=== PATIENT | female | born 1970 | race Caucasian/White ===

== ENCOUNTER → 2020-09-06 12:28 | Outpatient (CLI) | payer BC, SELFPAY ==
--- NOTE | ~2020-09-06 | MM_ITS ---
EXAMINATION: MM screening jeffery BI w nisa HISTORY: Screening mammogram, family history of breast cancer in her mother. TECHNIQUE: Craniocaudal and mediolateral oblique 3-D tomosynthesis images were obtained and synthetic 2-D images were generated. CAD analysis was submitted and interpreted. COMPARISON: 03/31/2019, 03/05/2018, 02/19/2017 BREAST PARENCHYMAL COMPOSITION: There are scattered areas of fibroglandular density. FINDINGS: There is no evidence of suspicious mass, calcification, or architectural distortion to sugg est malignancy in either breast. There has been no suspicious interval change. IMPRESSION: 1. No mammographic evidence of malignancy. 2. Recommend routine screening mammography in one year. BI-RADS Category 1: Negative Reviewed, dictated and finalized at location A. BOARDER
== END ==
PROVIDERS: PCP Family Medicine; Visit Provider Advanced Practice Midwife
DX: Z12.31 Encounter for screening mammogram for malignant neoplasm of breast (principal)
CPT/HCPCS: 77063; 77067

== ENCOUNTER 2020-09-18 06:55 | Outpatient (NON) | payer BC, SELFPAY ==
[2020-09-18 22:34] LABS: SARS-CoV-2 RNA PCR Positive
== END 2020-09-18 06:56 ==
LOC: ANHCOVIDDT 07:05
PROVIDERS: PCP Family Medicine; Visit Provider Family Medicine
DX: U07.1 COVID-19 (principal)
CPT/HCPCS: C9803; U0003; U0005

== ENCOUNTER → 2021-01-26 09:13 | Outpatient (CLI) | payer BC, SELFPAY ==
--- NOTE | ~2021-01-26 | XR_ITS ---
XR knee RT 3V 01/26/2021 10:37 Indication: Right knee pain Procedure: 3 views right knee Comparison: 02/01/2013 Findings: There is severe osteoarthritis of the right knee, most advanced in the medial compartment. No fracture or traumatic malalignment. Small joint effusion. No foreign bodies. Impression: 1: Severe osteoarthritis of the right knee. Reviewed, dictated and finalized at location A. Impression: 1: Severe osteoarthritis of the right knee.
== END ==
PROVIDERS: PCP Family Medicine; Visit Provider Family Medicine
DX: M17.11 Unilateral primary osteoarthritis, right knee (principal)
CPT/HCPCS: 73562

== ENCOUNTER → 2021-09-24 02:37 | Outpatient (CLI) | payer BC, SELFPAY ==
[2021-09-24 19:08] LABS: SARS-CoV-2 RNA PCR Positive
== END ==
PROVIDERS: PCP Family Medicine; Visit Provider Family Medicine
DX: U07.1 COVID-19 (principal)
CPT/HCPCS: C9803; U0003; U0005

== ENCOUNTER → 2021-09-30 13:30 | Outpatient (CLI) | payer BC, SELFPAY ==
--- NOTE | ~2021-09-30 | MM_ITS ---
EXAMINATION: MM screening jeffery BI w nisa HISTORY: Screening TECHNIQUE: Craniocaudal and mediolateral oblique 3-D tomosynthesis images were obtained and synthetic 2-D images were generated. CAD analysis was submitted and interpreted. COMPARISON: Comparison to multiple prior studies sequentially, with oldest reviewed study dated 01/15. BREAST PARENCHYMAL COMPOSITION: There are scattered areas of fibroglandular density. FINDINGS: There is no evidence of suspicious mass, calcification, or architectural distortion to sugg est malignancy in either breast. There has been no suspicious interval change. IMPRESSION: 1. No mammographic evidence of malignancy. 2. Recommend routine screening mammography in one year. BI-RADS Category 1: Negative Reviewed, dictated and finalized at location A. CUTTER
== END ==
PROVIDERS: PCP Advanced Practice Midwife; Visit Provider Advanced Practice Midwife
DX: Z12.31 Encounter for screening mammogram for malignant neoplasm of breast (principal)
CPT/HCPCS: 77063; 77067

== ENCOUNTER 2022-01-15 01:41 | Day surgery (SDC) | payer BC, SELFPAY ==
[2022-01-02 13:16] VITALS: BMI 45.1
--- NOTE | 2022-01-14 17:36 | WPDGICN ---
Assessment and Plan Assessment and plan (1) Colon cancer screening: Code(s): Z12.11 - Encounter for screening for malignant neoplasm of colon Status: Acute Assessment and Plan: Colonoscopy with possible biopsy or polypectomy or cautery or injection of substances. GI Consult Note Consult date/time: 01/14/22 17:36 HPI: Merary Paul is a 52 year old female Was referred for consideration for colon cancer screening. She has not had a colonoscopy in the past she has not had blood her stools. There is no known family history of colon cancer Review of Systems Review of Systems: All systems reviewed & are unremarkable except as noted in HPI and below PMFSH Past Medical History Medical History Depression with anxiety Environmental allergies Glaucoma History of COVID-19 08/2020 Type 2 diabetes mellitus Vitamin D deficiency Surgical History Surgical History H/O rotator cuff surgery (~2018) Left H/O tubal ligation (~2009) History of hernia surgery (~2015) Hx of cholecystectomy (~2010) Family History Family History Mother Family history of diabetes mellitus in first degree relative Other Acute myocardial infarction Diabetes mellitus Family history of malignant neoplasm Family history of malignant neoplasm of breast Hypertension Social History Social History Smoking packs per day: 1 Smoking cigarettes per day: 20.0 Years smoked: 25 Smoking pack-years: 25.00 Smoking status: Current every day smoker Tobacco type: cigarettes Second hand tobacco smoke exposure: No Smoking end date: 02/28/21 Alcohol intake: current Drinks per week: 2 Substance use: never Substance use type: marijuana Other substance usage details: GUMMY AT Living arrangements: with family Gender identity (if verbalized by the patient): Female Spiritual care concerns: No Meds Home Medications and Allergies Home Medications Medication Instructions Recorded Confirmed Type latanoprost 0.005 % eye drops 1 drop EACH EYE DAILY 12/28/19 01/02/22 History blood sugar diagnostic See Rx Instructions .ROUTE 01/21/21 12/18/21 Rx .COMPLEX #100 strip cholecalciferol (vitamin D3) 1,250 1,250 mcg PO WEEKLY #12 tablet 06/27/21 01/02/22 Rx mcg (50,000 unit) tablet dapagliflozin 10 mg tablet 10 mg PO DAILY #90 tablet 07/01/21 01/02/22 Rx metformin 500 mg tablet,extended 2,000 mg PO QPM #360 tablet 09/23/21 01/02/22 Rx release 24 hr spironolactone 100 mg tablet 100 mg PO DAILY 12/18/21 01/02/22 History glimepiride 4 mg tablet 4 mg PO BID #180 tablet 12/19/21 01/02/22 Rx sertraline 100 mg tablet 150 mg PO DAILY #135 tablet 12/20/21 01/02/22 Rx Allergies Allergy/AdvReac Type Severity Reaction Status Date / Time metronidazole Allergy Unknown Swelling Verified 01/02/22 13:03 Exam Const: General: alert Nutritional Appearance: obese Orientation/consciousness: patient oriented x3 Resp: Auscultation: clear to auscultation bilaterally Cardio: Rhythm: regular rhythm GI: Inspection: obesity GI Palp: Yes Soft to palpation and No Tenderness to palpation present (GI) Neuro: General: patient oriented x3
[2022-01-15 08:37] VITALS: BP 146/87; PULSE 96; RESP 98; TEMP 35.8; O2SAT 98; BMI 43.2
[2022-01-15] MEDS: LACTATED RINGERS 1,000 ML 150 ML IV CONT (08:49)
[2022-01-15 08:58] LABS: Glucose Point of Care 263 mg/dl (65-105)
--- NOTE | 2022-01-15 09:28 | WPDANESEPPF ---
Anes - Initial Pre Proc Eval Procedure: Operation Date: 01/15/22 10:00 Proposed Procedures p Screening Colonoscopy - Pk Murray MD Date/Time: 01/15/22 09:28 Surgeon: Pk Murray MD Pre Op Diagnosis: neoplasm screening Patient Data Age: 52 Gender: F Height: 1.65 m Weight: 117.7 kg Last Vital Signs Temp 96.5 F L 01/15/22 08:37 Pulse 96 01/15/22 08:37 Resp 98 H 01/15/22 08:37 BP 146/87 H 01/15/22 08:37 Pulse Ox 98 01/15/22 08:37 Allergies Allergy/AdvReac Type Severity Reaction Status Date / Time metronidazole Allergy Unknown Swelling Verified 01/02/22 13:03 Home Medications Medication Instructions Recorded Confirmed Type latanoprost 0.005 % eye drops 1 drop EACH EYE DAILY 12/28/19 01/02/22 History blood sugar diagnostic See Rx Instructions .ROUTE 01/21/21 12/18/21 Rx .COMPLEX #100 strip cholecalciferol (vitamin D3) 1,250 1,250 mcg PO WEEKLY #12 tablet 06/27/21 01/02/22 Rx mcg (50,000 unit) tablet dapagliflozin 10 mg tablet 10 mg PO DAILY #90 tablet 07/01/21 01/02/22 Rx metformin 500 mg tablet,extended 2,000 mg PO QPM #360 tablet 09/23/21 01/02/22 Rx release 24 hr spironolactone 100 mg tablet 100 mg PO DAILY 12/18/21 01/02/22 History glimepiride 4 mg tablet 4 mg PO BID #180 tablet 12/19/21 01/02/22 Rx sertraline 100 mg tablet 150 mg PO DAILY #135 tablet 12/20/21 01/02/22 Rx Laboratory Tests 01/15/22 08:56 POC Capillary Glucose 263 mg/dl H mg/dl (65-105) Patient hx anesthesia problems: none Family hx anesthesia problems: none Results Review: All pre-operative results and documents have been reviewed as part of the pre-operative evaluation. [facility] Past Medical History Medical History Depression with anxiety Environmental allergies Glaucoma History of COVID-19 08/2020 Type 2 diabetes mellitus Vitamin D deficiency Surgical History Surgical History H/O rotator cuff surgery (~2018) Left H/O tubal ligation (~2009) History of hernia surgery (~2015) Hx of cholecystectomy (~2010) Family History Family History Mother Family history of diabetes mellitus in first degree relative Other Acute myocardial infarction Diabetes mellitus Family history of malignant neoplasm Family history of malignant neoplasm of breast Hypertension Social History Social History Smoking packs per day: 1 Smoking cigarettes per day: 20.0 Years smoked: 25 Smoking pack-years: 25.00 Smoking status: Current every day smoker Tobacco type: cigarettes Second hand tobacco smoke exposure: No Smoking end date: 02/28/21 Alcohol intake: current Drinks per week: 2 Substance use: never Substance use type: marijuana Other substance usage details: GUMMY AT Living arrangements: with family Gender identity (if verbalized by the patient): Female Spiritual care concerns: No Anes - Eval Final PreProcedure Day of Procedure 01/15/22 09:28 Patient weight: morbidly obese Heart: regular rate and rhythm Lungs: clear to auscultation Airway: Mallampati scale Neurological: alert and oriented Last oral intake: >/= 8 hours ASA classification: III Emergent: no Anesthetic plan: proceed Anesthesia type and monitoring: general GIVS and standard monitoring Results Review: All pre-operative results and documents have been reviewed as part of the pre-operative evaluation. Informed Consent: The patient's anesthetic plan and its attendant risks and benefits were discussed with the patient/family/POA. Questions were solicited and answers provided to the satisfaction of the patient/family/POA.
[2022-01-15] MEDS: SIMETHICONE ORAL SUSPENSION 20 MG/0.3 ML 30 ML BOTTLE 0.6 ML IRRIGATION (10:02)
[2022-01-15 10:17] VITALS: BP 101/54; PULSE 92; RESP 16; O2SAT 99
[2022-01-15 10:27] VITALS: BP 118/57; PULSE 87; RESP 20; O2SAT 98
[2022-01-15 10:37] VITALS: BP 132/70; PULSE 79; RESP 20; O2SAT 98
== END 2022-01-15 10:48 | disposition home or self-care (01) ==
PROVIDERS: PCP Family Medicine; Visit Provider Internal Medicine Gastroenterology
PROC: 0DJD8ZZ Inspection of Lower Intestinal Tract, Via Natural or Artificial Opening Endoscopic (ICD-10-PCS; CPT 45378; principal; 2022-01-15 10:00)
DX: Z12.11 Encounter for screening for malignant neoplasm of colon (principal); K63.5 Polyp of colon; K57.30 Diverticulosis of large intestine without perforation or abscess without bleeding; E11.9 Type 2 diabetes mellitus without complications; E55.9 Vitamin D deficiency, unspecified; H40.9 Unspecified glaucoma; F41.8 Other specified anxiety disorders; F17.210 Nicotine dependence, cigarettes, uncomplicated; F12.90 Cannabis use, unspecified, uncomplicated; Z79.84 Long term (current) use of oral hypoglycemic drugs; E66.01 Morbid (severe) obesity due to excess calories; Z68.41 Body mass index [BMI] 40.0-44.9, adult
CPT/HCPCS: 45380; 82948; 88305; J2704; J7120

== ENCOUNTER 2022-09-19 09:00 | Outpatient (CLI) | payer BC, SELFPAY ==
--- NOTE | 2022-09-19 11:00 | NEURO_ITS ---
Impression: Patient reports a history of bilateral upper extremity paresthesia and pain in both elbows. # Evidence of mild right Carpal Tunnel Syndrome. # Normal needle/EMG exam. # Clinical correlation recommended. Motor Nerve Conduction Upper Extremities Median Nerve Conduction Velocity (m/sec) Terminal Latency (msec) Response Voltage(mV) Elbow-Wrist Wrist Elbow Wrist Right 56 3.4 4 7 Left 55 3.4 4 5 Ulnar Nerve Conduction Velocity (m/sec) Terminal Latency (msec) Response Voltage(mV) Above Elbow Below Elbow Wrist Above Elbow Below Elbow Wrist Right 53 55 2.1 5 4 7 Left 56 54 2.5 2 3 6 F-Wave Latency Median (ms) Ulnar (ms) Right 27.1 27.4 Left 27.0 26.7 Sensory Nerve Conduction Upper Extremities Median Nerve Stimulation Terminal Latency (msec) Wrist/Digit Response Voltage (uV) Wrist Right 4.8/4.8 19/25 Left 3.4/3.6 46/43 Ulnar Nerve Stimulation Terminal Latency (msec) Wrist/Digit Response Voltage (uV) Wrist Right 2.6 27 Left 2.3 10 Radial Nerve Terminal Latency (msec) Response Voltage(mV) Right 1.6 49 Left 1.7 38 Left Right Muscles Examined Fibrillation Fasciculation Scarcity Voltage Duration Left Right Left Right Left Right Left Right Left Right Deltoid Biceps X X Brachioradialis Triceps X X Pronator Teres X X Ext Indicis X X Ext Digitorum X X Abd Poll Brev X X 1st Dorsal Interosseus Paraspinals MTDD
== END 2022-09-19 09:01 | disposition home or self-care (01) ==
PROVIDERS: PCP Family Medicine; Visit Provider Family Medicine
DX: R20.0 Anesthesia of skin (principal)
CPT/HCPCS: 95886; 95911

== ENCOUNTER 2022-12-08 10:30 | Outpatient (CLI) | payer BC, SELFPAY ==
[2022-12-08 20:42] LABS: Alanine Aminotransferase 29 U/L (6-35); Albumin Level 4.5 g/dL (3.5-5.1); Alkaline Phosphatase 91 U/L (38-126); Anion Gap 7 mmol/L (8-16); Aspartate Amino Transferase 25 U/L (14-36); Bilirubin,Total 0.6 mg/dL (0.2-1.3); Blood Urea Nitrogen 16 mg/dL (7-17); Calcium 9.4 mg/dL (8.4-10.2); Carbon Dioxide 28 mmol/L (22-30); Chloride 106 mmol/L (98-107); Estimated Glomerular Filt Rate > 60; Glucose 169 mg/dL (65-110); Potassium 4.2 mmol/L (3.4-5.0); Sodium 141 mmol/L (137-145)
[2022-12-08 21:03] LABS: Hemoglobin A1C 7.4 % (<5.7)
== END 2022-12-08 10:31 | disposition home or self-care (01) ==
LOC: ANHGOSHLAB 10:31
PROVIDERS: PCP Family Medicine; Visit Provider Family Medicine
DX: E11.9 Type 2 diabetes mellitus without complications (principal); F41.8 Other specified anxiety disorders; Z79.899 Other long term (current) drug therapy
CPT/HCPCS: 36415; 80053; 83036

== ENCOUNTER → 2023-04-15 15:00 | Outpatient (CLI) | payer BC, SELFPAY ==
--- NOTE | ~2023-04-15 | MM_ITS ---
EXAMINATION: MM screening jeffery BI w nisa HISTORY: Screening TECHNIQUE: Craniocaudal and mediolateral oblique 3-D tomosynthesis images were obtained and synthetic 2-D images were generated. CAD analysis was submitted and interpreted. COMPARISON: Comparison to multiple prior studies sequentially, with oldest reviewed study dated 02/11. BREAST PARENCHYMAL COMPOSITION: There are scattered areas of fibroglandular density. FINDINGS: There is a developing cluster of calcifications in the lower outer quadrant of the left lorie ast. There are developing asymmetries centered in the upper outer quadrant of the left breast. The ri ght breast is stable without evidence for malignancy. IMPRESSION: 1. Developing left breast asymmetries and clustered calcifications. 2. Additional mammographic views and possible breast ultrasound are recommended. BI-RADS Category 0: Incomplete: Needs additional imaging evaluation. Reviewed, dictated and finalized at location A. IMPRESSION: 1. Developing left breast asymmetries and clustered calcifications. 2. Additional mammographic views and possible breast ultrasound are recommended . BI-RADS Category 0: Incomplete: Needs additional imaging evaluation.
== END ==
PROVIDERS: PCP Advanced Practice Midwife; Visit Provider Advanced Practice Midwife
DX: Z12.31 Encounter for screening mammogram for malignant neoplasm of breast (principal); R92.1 Mammographic calcification found on diagnostic imaging of breast
CPT/HCPCS: 77063; 77067

== ENCOUNTER → 2023-05-20 08:46 | Outpatient (CLI) | payer BC, SELFPAY ==
--- NOTE | ~2023-05-20 | MMUS_ITS ---
EXAMINATION: MM diagnostic jeffery LT w nisa, US breast LT limited HISTORY: Follow-up left breast asymmetries and calcifications TECHNIQUE: Additional 3-D tomosynthesis images of the left breast were performed and synthetic 2-D im ages were generated. CAD analysis was submitted and interpreted. High resolution Limited left breast ultrasound was performed. COMPARISON: 04/15/2023 BREAST PARENCHYMAL COMPOSITION: Breast composed of scattered areas of fibroglandular density FINDINGS: MAMMOGRAPHIC FINDINGS: There are clustered indeterminate calcifications in the lower outer quadrant of the left breast, midd le depth. Focal asymmetries in the upper outer quadrant of the left breast are less apparent with spo t compression and mediolateral views. ULTRASOUND: Limited left breast ultrasound: Normal heterogeneous echotexture without focal solid or cystic mass. IMPRESSION: 1. Clustered indeterminate calcifications in the lower outer quadrant of the left breast, middle dept h. 2. Stereotactic left breast biopsy recommended. BI-RADS category 4, suspicious findings. Reviewed, dictated and finalized at location A. IMPRESSION: 1. Clustered indeterminate calcifications in the lower outer quadrant of the le ft breast, middle depth. 2. Stereotactic left breast biopsy recommended. BI-RADS category 4, suspicious findings.
== END ==
PROVIDERS: PCP Family Medicine; Visit Provider Advanced Practice Midwife
DX: R92.8 Other abnormal and inconclusive findings on diagnostic imaging of breast (principal); R92.1 Mammographic calcification found on diagnostic imaging of breast
CPT/HCPCS: 76642; 77061; 77065; G0279

== ENCOUNTER 2023-08-11 06:20 | Outpatient (CLI) | payer BC, SELFPAY ==
--- NOTE | 2023-09-07 14:44 | WPDHOMESLEEP ---
Sleep Study - Home Unattended Date of Study: 08/11/23 Ordering Provider: Michelle Pike MD Interpreting Provider: Tuyet Vilchis, DO Home Sleep Study Type: Watch PAT Height: 1.65 m Weight: 109.769 kg Body Mass Index: 40.2 Neck Circumference (inches): 17 [place]: 12 Reason for Sleep Study Difficulty staying asleep Sleep History The patient is a 53-year-old female with hypertension, diabetes, anxiety, acne, glaucoma, depression, seasonal allergies, osteoporosis, morbid obesity and current tobacco use that had a sleep study ordered by her primary care physician for evaluation of sleep apnea. The patient denies awakening from sleep short of breath. She frequently awakens at night with heartburn, belching or cough. She constantly snores loudly enough that others complain. She constantly has trouble sleeping when she has a cold. She denies waking up gasping for air throughout the night. She denies having breathing problems at night observed by herself or others. She occasionally sweats excessively at night. She denies having heart palpitations or irregular heartbeats during the night. She occasionally falls asleep during the day and occasionally falls asleep while driving. She denies sleep paralysis, cataplexy and hypnagogic/hypnopompic hallucinations. She rarely has trouble at school or work due to sleepiness. She denies feeling afraid of going to sleep. She denies having nightmares. She rarely remembers her dreams. She frequently has thoughts racing through her mind. She frequently feels sad, depressed and anxious. She constantly has muscular tension. She occasionally notices parts of her body jerk. She occasionally kicks during the night. She denies having crawling and aching feelings in her legs. She rarely has leg pain during the night. She rarely grinds her teeth during sleep but constantly awakens with morning jaw pain. She is frequently bothered by pain during the day but rarely awakened by pain during the night. She constantly wakes up feeling stiff in the morning. She constantly wakes up with sore or achy muscles. She constantly wakes up with pain in the neck, spine and other joints. She goes to bed at 7:00 p.m. on weekdays and between 7-9 p.m. on the weekends. It takes her 20 minutes to fall asleep. She wakes up twice throughout the night for unknown reasons and it can take 30 minutes for her to fall back asleep. She wakes up between 4-4:30 a.m. on weekdays and at 6:00 a.m. on the weekends. She will stay in bed for 20 minutes after waking up in the morning. She currently lives with her adult son. She denies consuming any caffeinated beverages within 2 hours of bedtime. She denies engaging in physical exercise before bedtime. She will watch television before falling asleep. She denies taking naps in the afternoon or the evening. She consumes 12 oz of caffeinated coffee per day. She currently smokes 0.5 packs of cigarettes per day. She denies alcohol and recreational drug use. [facility] Past Medical History Medical History Depression with anxiety Environmental allergies Essential (primary) hypertension Glaucoma History of COVID-19 08/2020 Type 2 diabetes mellitus Vitamin D deficiency Surgical History Surgical History H/O rotator cuff surgery (~2018) Left H/O tubal ligation (~2009) History of hernia surgery (~2015) Hx of cholecystectomy (~2010) Family History Family History Mother Family history of diabetes mellitus in first degree relative Other Acute myocardial infarction Diabetes mellitus Family history of malignant neoplasm Family history of malignant neoplasm of breast Hypertension Social History Social History Smoking packs per day: 1 Smoking c
[2023-09-07 14:57] VITALS: BMI 40.2
== END 2023-08-13 08:00 | disposition home or self-care (01) ==
LOC: ANHCSM 06:20
PROVIDERS: PCP Family Medicine; Visit Provider Family Medicine
DX: R29.818 Other symptoms and signs involving the nervous system (principal); G47.9 Sleep disorder, unspecified; R40.0 Somnolence; G47.10 Hypersomnia, unspecified
CPT/HCPCS: 95800

== ENCOUNTER 2024-01-15 08:49 | Outpatient (CLI) | payer BC, SELFPAY ==
--- NOTE | ~2024-01-15 | CT_ITS ---
CT Scan of the Chest without Contrast: Clinical Indication: Lung cancer screening, nicotine dependence Technique: Contiguous sections were acquired throughout the chest without intravenous contrast. Dose reduction technique was used on this scan by utilizing automated exposure control and iterative recon struction technique. The dose-length product (DLP) was 182.74 mGy-cm. Findings: There is no evidence of any significant mediastinal, hilar or axillary lymphadenopathy. The mediastin al soft tissues appear normal. There is no evidence of pleural or pericardial effusion. The lungs are clear. No pulmonary nodules or infiltrates are noted. Images through the upper abdomen reveal no abnormalities. Impression: Lung RADS 1: Negative. 12 month follow-up screening CT advised. Reviewed, dictated and finalized at location . Impression: Lung RADS 1: Negative. 12 month follow-up screening CT advised.
== END 2024-01-15 08:50 | disposition home or self-care (01) ==
LOC: ANHIMG 08:50
PROVIDERS: PCP Family Medicine; Visit Provider Nurse Practitioner Family
DX: Z12.2 Encounter for screening for malignant neoplasm of respiratory organs (principal); Z87.891 Personal history of nicotine dependence
CPT/HCPCS: 71271

== ENCOUNTER 2024-01-28 09:26 | Outpatient (CLI) | payer BC, SELFPAY ==
[2024-02-09 16:58] VITALS: BMI 35.1
--- NOTE | 2024-02-09 16:58 | WPDSLEEPSTUD ---
Sleep Study Date of Study: 01/28/24 Ordering Provider: DINESH Donald Interpreting Physician: Tuyet Vilchis DO Sleep Study Type: Split Polysomnogram Height: 1.65 m Weight: 95.708 kg Body Mass Index: 35.1 Neck Circumference (inches): 16 [place]: 12 Reason for Sleep Study Difficulty staying asleep Sleep History The patient is a 54-year-old female with hypertension, diabetes, anxiety, acne, glaucoma, depression, seasonal allergies, osteoporosis, obesity and current tobacco use that had a sleep study ordered by her primary care physician for evaluation of sleep apnea. The patient denies awakening from sleep short of breath. She frequently awakens at night with heartburn, belching or cough. She constantly snores loudly enough that others complain. She constantly has trouble sleeping when she has a cold. She denies waking up gasping for air throughout the night. She denies having breathing problems at night observed by herself or others. She occasionally sweats excessively at night. She denies having heart palpitations or irregular heartbeats during the night. She occasionally falls asleep during the day and occasionally falls asleep while driving. She denies sleep paralysis, cataplexy and hypnagogic/hypnopompic hallucinations. She rarely has trouble at school or work due to sleepiness. She denies feeling afraid of going to sleep. She denies having nightmares. She rarely remembers her dreams. She frequently has thoughts racing through her mind. She frequently feels sad, depressed and anxious. She constantly has muscular tension. She occasionally notices parts of her body jerk. She occasionally kicks during the night. She denies having crawling and aching feelings in her legs. She rarely has leg pain during the night. She rarely grinds her teeth during sleep but constantly awakens with morning jaw pain. She is frequently bothered by pain during the day but rarely awakened by pain during the night. She constantly wakes up feeling stiff in the morning. She constantly wakes up with sore or achy muscles. She constantly wakes up with pain in the neck, spine and other joints. She goes to bed at 7:00 p.m. on weekdays and between 7-9 p.m. on the weekends. It takes her 20 minutes to fall asleep. She wakes up twice throughout the night for unknown reasons and it can take 30 minutes for her to fall back asleep. She wakes up between 4-4:30 a.m. on weekdays and at 6:00 a.m. on the weekends. She will stay in bed for 20 minutes after waking up in the morning. She currently lives with her adult son. She denies consuming any caffeinated beverages within 2 hours of bedtime. She denies engaging in physical exercise before bedtime. She will watch television before falling asleep. She denies taking naps in the afternoon or the evening. She consumes 12 oz of caffeinated coffee per day. She currently smokes 0.5 packs of cigarettes per day. She denies alcohol and recreational drug use. [facility] Past Medical History Medical History Breast wound Depression with anxiety Environmental allergies Essential (primary) hypertension Glaucoma Great toe pain History of COVID-19 08/2020 Type 2 diabetes mellitus Vitamin D deficiency Surgical History Surgical History H/O rotator cuff surgery (~2018) Left H/O tubal ligation (~2009) History of hernia surgery (~2015) Hx of cholecystectomy (~2010) Family History Family History Mother Family history of diabetes mellitus in first degree relative Other Acute myocardial infarction Diabetes mellitus Family history of malignant neoplasm Family history of malignant neoplasm of breast Hypertension Social History Social History Smoking packs per day: 1 Sm
== END 2024-01-29 07:19 | disposition home or self-care (01) ==
PROVIDERS: PCP Family Medicine; Visit Provider Physician Assistant
DX: G47.33 Obstructive sleep apnea (adult) (pediatric) (principal); I10 Essential (primary) hypertension; F39 Unspecified mood [affective] disorder; R40.0 Somnolence; R29.818 Other symptoms and signs involving the nervous system; G47.61 Periodic limb movement disorder; G47.00 Insomnia, unspecified
CPT/HCPCS: 95811

== ENCOUNTER 2025-01-16 10:01 | Outpatient (CLI) | payer BC, SELFPAY ==
--- NOTE | ~2025-01-16 | CT_ITS ---
EXAMINATION: CT lung screening DATE: 01/16/2025 10:17 INDICATION: Z87.891 - Personal history of nicotine dependence TECHNIQUE: Computed tomography (CT) of the chest was performed without intravenous contrast. Addition al 3D reconstructions utilizing coronal maximum intensity projection (MIP) were performed. Automated exposure control and iterative reconstruction technique were employed. The dose-length product was 14 5.50 mGy-cm. COMPARISON: 01/15/2024 FINDINGS: 3 4 mm left lower lobe nodule near the apex of the left hemidiaphragm. No other pulmonary nodules, pn eumonia, pulmonary edema or pleural effusion. Heart size is normal. No pericardial effusion. Thoracic aorta is normal in caliber. No pathologically enlarged thoracic lymphadenopathy. Cholecystectomy cli ps the gallbladder fossa. There are few diverticula along the splenic flexure the colon without adjac ent comparison to suggest diverticulitis. Mild thoracic spondylosis. IMPRESSION: 1. . Lung-RADS category 2: Benign appearance or behavior. Continue annual screening with noncontrast low-dose chest CT in 12 months. Reviewed, dictated and finalized at location A. IMPRESSION: 1. . Lung-RADS category 2: Benign appearance or behavior. Continue annual scree pia with noncontrast low-dose chest CT in 12 months.
--- OUTSIDE RECORDS SUMMARY | 2025-01-16 10:38 | XMS_ITS | Referral Summary ---
Author Organization [facility] Address [address] [place] [id number] Care Team Providers Care On Site Property Manager Name Role Phone Deana Lugo NP Unavailable [phone] Michelle Pike MD Primary Care Provider Encounters Date Type Department Care Team Description 01/05/2025 Telephone [facility] ([facility] Minimally Invasive Surgery [address] [place] [address] 12th Floor, [place] [phone] Giselle Alex 01/04/2025 8:00 AM CDT Clinical Support [facility] Diabetes [facility] Nutrition [address] [place] [address] [place] [id number] Ductal carcinoma in situ (DCIS) of left breast 01/04/2025 1:00 PM CDT Pre-Admission Testing [facility] [address] [place] [id number] Preoperative testing (Primary Dx) 01/02/2025 Orders Only [facility] Diabetes [facility] Nutrition [address] [place] [address] [place] [id number] Ductal carcinoma in situ (DCIS) of left breast (Primary Dx) 01/02/2025 Telephone [facility] Surgery [address] [facility] 6th [place] [address] [place] [address] Kevin Gruber RN 12/29/2024 Telephone [facility] Diabetes [facility] Nutrition [address] 10/21/2024 11:00 AM ENSEMBLE MEMBER Clinical Support [facility] Nutrition [address] Ductal carcinoma in situ (DCIS) of left breast (Primary Dx) from Last 3 Months Allergies Active Allergy Reactions Criticality Noted Date Comments Metronidazole Itching,Redness Low 06/22/2023 Oral medication only - legs became swollen, itchy, and red Medications citalopram (CeleXA) 20 mg tabletIndications :Anxiety with Depression Take 1 tablet (20 mg total) by mouth every morning Active Jardiance 25 mg tabletIndications :type 2 diabetes mellitus Take 1 tablet (25 mg total) by mouth every morning Active metFORMIN XR (GLUCOPHAGE XR) 500 mg 24 hr tabletIndications :type 2 diabetes mellitus Take 1 tablet (500 mg total) by mouth every evening 06/06/20 23 Active glimepiride (AMARYL) 4 mg tabletIndications :type 2 diabetes mellitus Take 1 tablet (4 mg total) by mouth every morning Active hydrOXYzine (ATARAX) 25 mg tabletIndications :anxiety Take 1 tablet (25 mg total) by mouth every 8 (eight) hours as needed for anxiety 07/06/20 23 Active metoprolol XL (TOPROL-XL) 25 mg extended release tabletIndications :hypertension Take 1 tablet (25 mg total) by mouth every evening 07/06/20 23 Active vitamin B complex (Super B-50 Complex) capsuleIndication s:supplement Take 1 capsule by mouth every morning Active Accu-Chek Michelle Plus test strp strip USE TO TEST 3 TIMES A DAY BEFORE MEALS 09/10/19 24 Active tirzepatide (MOUNJARO SUBQ)Indications: type 2 diabetes mellitus Inject 15 mg under the skin once a week Wednesdays10/06/19 24 Active acetaminophen (TYLENOL) 500 mg tablet Take 1 tablet (500 mg total) by mouth every 6 (six) hours as needed for pain 30 tablet 11/24/19 24 Active cyclobenzaprine (FLEXERIL) 10 mg tablet Take 1 tablet (10 mg total) by mouth 3 (three) times a day as needed for muscle spasms 30 tablet 11/24/19 24 Active oxyCODONE (ROXICODONE) 5 mg immediate release tabletIndications :Pain Take 1 tablet (5 mg total) by mouth every 4 (four) hours as needed for pain 15 tablet 11/24/19 24 Active latanoprost (XALATAN) 0.005 % ophthalmic solutionIndicatio ns:open angle glaucoma Administer 1 drop into both eyes nightly 12/08/19 24 Active tavaborole 5 % solution with applicatorIndicat ions:toenail onychomycosis Apply 1 Application topically every evening 03/10/20 24 Active acidophilus-pecti n, citrus 100 million cell-10 mg capsuleIndication s:supplement-prob iotic Take 1 tablet by mouth every morning Active varenicline tartrate (CHANTIX) 1 mg tabletIndications :Smoking Cessation Take 1 tablet (1 mg total) by mouth 2 (two) times a day Take with full glass of water. Active lisinopriL (PRINIVIL,ZESTRIL ) 5 mg tabletIndications :hypertension Take 1 tablet (5 mg total) by mouth every morning Active magnesium glycinate 100 mg tabletIndications :supplement Take 1 tablet by mouth every evening Active cholecalciferol (VITAMIN D-3) 2000 unit tabletIndications :supplement Take 1 tablet (2,000 Units total) by mouth every evening Active loratadine (CLARITIN) 10 mg tabletIndications :Allergic Rhinitis Take 1 tablet (10 mg total) by mouth every evening Active pravastatin (PRAVACHOL) 10 mg tabletIndications :hyperlipidemia Take 1 tablet (10 mg total) by mouth every evening Active docusate sodium (COLACE) 50 mg capsuleIndication s:constipation Take 1 capsule (50 mg total) by mouth 2 (two) times a day as needed for constipation Active levonorgestreL (MIRENA) IUD 1 each by intrauterine route once Active spironolactone (ALDACTONE) 100 mg tablet Take 1 tablet (100 mg total) by mouth nightly 025 Discontin ued(Thera py completed ) vitamin D3-vitamin K2 25 mcg (1,000 unit)-90 mcg tablet,disintegra ting Take 1 capsule by mouth nightly 025 Discontin ued(Thera py completed ) cetirizine (ZyrTEC) 10 mg tablet Take 1 tablet (10 mg total) by mouth nightly Aller-amadeo 025 Discontin ued(Thera py completed ) sertraline (ZOLOFT) 100 mg tablet TAKE 1 AND 1/2 TABLET BY MOUTH EVERY DAY 09/14/19 24 025 Discontin ued(Thera py completed ) eszopiclone (LUNESTA) 2 mg tablet 2 MG ORALLY ONCE 09/10/19 24 025 Discontin ued(Thera py completed ) bacitracin-polymy bethany B (bacitracin zinc-polymyxin B) ointment Apply topically 2 (two) times a day 11/24/19 24 025 Discontin ued(Thera py completed ) amoxicillin-clavu lanate (AUGMENTIN) 875-125 mg per tablet Take 1 tablet by mouth every 12 (twelve) hours 025 Discontin ued(Thera py completed ) doxycycline (doxycycline hyclate) 100 mg capsule TAKE 1 TABLET/CAPSULE (100 MG TOTAL) BY MOUTH TWICE A DAY FOR 14 DAYS 025 Discontin ued(Thera py completed ) fluconazole (DIFLUCAN) 150 mg tablet TAKE 1 TABLET BY ORAL ROUTE ONCE TODAY AND AGAIN IN 72 HOURS 01/12/20 24 025 Discontin ued(Thera py completed ) Active Problems Problem Noted Date Diagnosed Date Incarcerated incisional hernia 10/06/2024 Breast infection 11/23/2023 Breast cancer in female 10/09/2023 Ductal carcinoma in situ (DCIS) of left breast 0 09/16/2023 Breast calcifications 06/22/2023 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 Overview (10/15/2023): Oth noninflammatory disorders of vulva and perineum;Recorded Elsewhere: No Location: [facility] Source: EHR Chronic: N Practice ID: [id number] Billable Time: 11:45:00 AM Acute vaginitis 11/13/2015 Overview (10/15/2023): Acute vaginitis;Practice ID: [id number] Right lower quadrant pain 07/17/2015 Overview (10/15/2023): Right lower quadrant pain;Practice ID: [id number] Cyst of ovary 04/17/2015 Overview (10/15/2023): Ovarian cyst;Recorded Elsewhere: No Location: [facility] Source: EHR Chronic: N Practice ID: [id number] Billable Time: 09:00:00 AM Female genital symptoms 04/17/2015 Overview (10/15/2023): Unspecified symptom associated with female genital organs;Recorded Elsewhere: No Location: [facility] Source: EHR Chronic: N Practice ID: [id number] Billable Time: 08:30:00 AM Depressive disorder 12/27/2014 Overview (10/15/2023): Depression;Recorded Elsewhere: No Location: [facility] Source: EHR Chronic: N Practice ID: [id number] Billable Time: 08:30:00 AM Tobacco dependence syndrome 12/27/2014 Overview (10/15/2023): Tobacco abuse;Recorded Elsewhere: No Location: [facility] Source: EHR Chronic: N Practice ID: [id number] Billable Time: 08:30:00 AM Dysmenorrhea 11/24/2011 Overview (10/15/2023): Dysmenorrhea;Recorded Elsewhere: No Location: [facility] Source: EHR Chronic: N Practice ID: [id number] Billable Time: 10:00:00 AM Immunizations Immunization Administration Dates Next Due Influenza, Quadrivalent, Mayra l Culture-based MDCK, Preservative Free, Antibiotic Free, Intramuscular 05/13/2023,05/17/2022,06/14/2021,05/25,06/26/2018,05/28/2017 Influenza, Quadrivalent, Spl it, Preservative Free, Intramuscular 06/24/2020,05/16/2016 Tdap 06/24/2020 ZOSTER Recombinant 09/15/2022,07/02/2022 Social History Tobacco Use Types Packs/Day Years Used Date Smoking Tobacco: Every Day Cigarettes Smokeless Tobacco: Never Tobacco Cessation:Ready to Q uit: Not Asked; Counseling Given: Not Answered AUDIT-C Answer Date Recorded Q1: How often do you have a drink containing alc ohol? Monthly or less 01/04/2025 Q2: How many drinks containi ng alcohol do you have on a typical day when you are drinking? 1 or 2 01/04/2025 Q3: How often do you have si x or more drinks on one occasion? Never 01/04/2025 Personal Safety Answer Date Recorded Have you ever been in or are you currently in a harmful physical or emotional relationship or is someone making you feel afraid or unsafe? Denies 01/04/2025 Comments No Sex and Gender Information Value Date Recorded Sex Assigned at Not on file Legal Sex Female 12:57 AM ENSEMBLE MEMBER Gender Identity Not on file Sexual Orientation Not on file Last Filed Vital Signs Vital Sign Reading Time Taken Comments Blood Pressure 121/82 01/04/2025 12:30 PM CDT Pulse 89 01/04/2025 12:30 PM CDT Temperature 36.6 C (97.8 F) 09/14/2024 2:10 PM ENSEMBLE MEMBER Respiratory Rate 18 01/04/2025 12:3 0 PM CDT Oxygen Saturation 95% 01/04/2025 12: 30 PM CDT Inhaled Oxygen Concentration - - Weight 91.6 kg (201 lb 15.1 oz) 025 12:30 PM CDT Height 165.1 cm (5' 5 ) 01/04/2025 12:3 0 PM CDT Body Mass Index 33.6 01/04/2025 12:30 PM CDT Plan of Treatment Upcoming Encounters Date Type Department Care Team (Late st Contact Info) Description 01/04/2025 11:59 PM CDT Anesthesia Event [facility] Operating Room 1 [place] [phone] Marisela Champion NP [address] [facility] [phone] [place] [address] 01/31/2025 Hospital Encounter [facility] Operating Room [address] [place] [address] Liam Germain MD [address] [place] [address] Scheduled Procedures Name Priority Associated Diagnoses Date/Ti me XI REPAIR INCISIONAL HERNIA - LAPAROSCOPIC ROBOTIC ASSISTED Incarcerated incisional hernia XI ROBOTIC ABDOMINAL WALL RECONSTRUCTION Incarcerated incisional hernia Medical Devices Implanted Type Area Boat Officer Device Identifier Shelf Expiration Date Model / Serial / Lot [employer] Eviva 13cm Identifier Biopsy Site [id number] - [id number] Implanted:Qty: 1 on 07/02/2023 by Jordan Ansari MD at [facility] Left: Breast [employer] [id number] 10/21/2023 [facility]MYRNA VA-13 / / [id number] Explanted Type Area Boat Officer Device Identifier Shelf Expiration Date Model / Serial / Lot [employer] Travel Registered Nurse Icu Breast Ultra High Profile Round Smooth Artoura Plus 535cc Silicone [address] - [id number] - [id number] Implanted:Qty : 1 on 10/09/2023 by Roger Canada MD at [facility] Explanted:Qty : 1 on 11/24/2023 by Roger Canada MD at [facility] Breast Right: Breast [employer] [id number] 08/05/[address] / [id number] [employer] Travel Registered Nurse Icu Breast Ultra High Profile Round Smooth Artoura Plus 535cc Silicone [address] - [id number] - [id number] Implanted:Qty : 1 on 10/09/2023 by Roger Canada MD at [facility] Explanted:Qty : 1 on 11/24/2023 by Roger Canada MD at [facility] Breast Left: Breast [employer] [id number] 08/05/2027 [id number] / [id number] / [id number] Procedures Procedure Name Priority Date/Time Associated Diagnosis Comments EGFR Routine 01/04/2025 1:13 PM CDT Preoperative testing CBC WITHOUT DIFFERENTIAL Routine 01/04/2025 1:13 PM CDT Preoperative testing COMPREHENSIVE METABOLIC PANEL Routine 01/04/2025 1:13 PM CDT Preoperative testing TYPE AND SCREEN 14 DAY Routine 1:13 PM CDT Preoperative testing POCT HEMOGLOBIN A1C Routine 01/04/2025 1 :03 PM CDT from Last 3 Months Results * TYPE AND SCREEN 14 DAY (01/04/2025 1:13 PM CDT) ABO Rh O Positive Baljinder, indirect Negative [facility] WONG Blood 01/04/2025 1:13 PM CDT 01/04/2025 2:15 PM CDT Narrative [facility] WONG - 01/04/2025 4:30 PM CDT Has the patient had Daratumumab or Isatuximab in the past 6 months?->Unknown Is this test being ordered in advance for a procedure?->Yes Expected date of procedure:->01/31/25 Has the patient been transfused in the past 3 months?->No Has the patient been in the past 3 months?->No Marisela Champion NP LAB BLOOD BANK TEST O RDERABLES Final Result [facility] Department [place] [address] * eGFR (01/04/2025 1:13 PM CDT) eGFR >90 >=60 mL/min/1. 73 m2 Comment: Interpretive Data Reference Interval Normal >/= 90 mL/min/1.73m2 Mildly decreased* 60 - 89 mL/min/1.73m2 Mildly to moderately decreased 45 - 59 mL/min/1.73m2 Moderately to severely decreased 30 - 44 mL/min/1.73m2 Severely decreased 15 - 29 mL/min/1.73m2 Kidney Failure < 15 mL/min/1.73m2 *Relative to young adult level Estimated glomerular filtration rate is determined by the 2020 CKD-EPI equation recommended by the National Kidney Foundation (A Unifying Approach to GFR Estimation: Recommendations of the NKF-ASK Task Force on Reassessing the Inclusion of Race in Diagnosing Kidney Disease, JASN 2020). The CKD-EPI equation should not be used for patients with unstable renal function and has not been validated in children and those over 70. Current interpretive data was last reviewed 2021. Blood 01/04/2025 1:13 PM CDT 01/04/2025 2:13 PM CDT Marisela Champion NP LAB BLOOD ORDERABLES Final Result [facility] Department [place] [address] * CBC without differential (01/04/2025 1:13 PM CDT) WBC 8.44 3.80 - 9.90 K/cumm Hgb 15.1 11.9 - 15.5 g/dL [facility] Hct 44.5 35.6 - 45.5 % [facility] Plt 303 150 - 400 K/cumm [facility] MPV 11.7 9.1 - 12.3 fL [facility] RBC 4.95 3.90 - 5.20 M/cumm [facility] MCV 89.9 81.3 - 96.4 fL [facility] MCH 30.5 27.1 - 33.3 pg [facility] MCHC 33.9 32.3 - 35.7 g/dL [facility] RDW CV 13.2 11.1 - 14.9 % [facility] RDW SD 43.1 35.7 - 48.1 fL [facility] NRBC abs 0.00 0.00 - 0.01 K/cumm [facility] Blood 01/04/2025 1:13 PM CDT 01/04/2025 2:14 PM CDT Marisela Champion TERRA COTTA SETTER LAB BLOOD ORDERABLES Final Result [facility] [place] [address] * Comprehensive metabolic panel (01/04/2025 1:13 PM CDT) Sodium 141 135 - 145 mmol/L Potassium, pl 3.9 3.3 - 4.9 mmol/L [facility] Comment:Hemolyzed; Potassium value may be falsely elevated by as much as 0.3-0.5 mmol/L. Suggest redraw and reanalysis. Chloride 105 97 - 110 mmol/L [facility] CO2 28 22 - 32 mmol/L [facility] Anion gap 8 2 - 15 mmol/L [facility] BUN 14 6 - 25 mg/dL [facility] Creatinine 0.67 0.60 - 1.10 mg/dL [facility] Glucose 128 70 - 199 mg/dL [facility] Comment: Interpretive Data Fasting glucose >/= 126 mg/dl is diagnostic for diabetes. Fasting is defined as no caloric intake for at least 8 hours. Fasting glucose between 100 mg/dl to 125 mg/dl is diagnostic of prediabetes. In a patient with classic symptoms of hyperglycemia or hyperglycemic crisis, a random glucose >/= 200 mg/dl is diagnostic for diabetes. In the absence of unequivocal hyperglycemia, results should be confirmed by repeat testing. The classification and Diagnosis of Diabetes Diabetes Care 202; 46: S19-S40. Current interpretive data was last revised 2022. Calcium 9.9 8.5 - 10.3 mg/dL [facility] Bilirubin, total 0.8 0.1 - 1.2 mg/dL [facility] Protein, pl 7.7 6.5 - 8.5 g/dL [facility] Albumin 4.4 3.5 - 5.0 g/dL [facility] Alk phos 77 40 - 130 Units/L [facility] ALT 20 7 - 45 Units/L [facility] AST 27 10 - 45 Units/L [facility] Comment:Hemolyzed; result ma y be falsely elevated Blood 01/04/2025 1:13 PM CDT 01/04/2025 2:13 PM CDT Marisela Champion NP LAB BLOOD ORDERABLES Final Result Performing Organization Address [facility] de Phone Number [facility] Department [place] [address] * POCT hemoglobin A1c (01/04/2025 1:03 PM CDT) Hgb A1C, POC 5.0 4.0 - 5.6 % Est Average Gluc POC 97 mg/dL [facility] Comment: The ADA recommends reporting an estimated Average Glucose (eAG) with all Hemoglobin A1c results using the equation derived from a study of 507 normal and diabetic adults. Minority populations were underrepresented and children were not included. (Diabetes Care 31:4743-2530, 2008). The eAG is not equivalent to a fasting glucose. Blood 01/04/2025 1:03 PM CDT 01/04/2025 1:03 PM CDT Liam Germain MD POINT OF CARE TEST ORDER KALEB Final Result Performing Organization Address [facility] Co de Phone Number [facility] Department [place] [address] from Last 3 Months Insurance [facility] ACCESS CHOICE ANTHEM ACCESS CHOICE Advance Directives For more information, please contact: [phone] * Full Code (Latest Code Status on File) Date Activated Date Inactivated Comments 10/09/2023 5:29 PM 10/10/2023 8:02 PM Care Teams On Site Property Manager Relationship Specialty Start Date End Date Michelle Pike MD [address] [facility] [address] [address] PCP - General Family Practice 05/21/23 Deana Lugo NP [address] [place] [address] Nurse Practitioner Obstetrics and Gynecology 05/21/23
--- OUTSIDE RECORDS SUMMARY | 2025-01-16 10:38 | XMS_ITS | Data Portability ---
Author Organization [facility] Address [address] [place] [address] Care Team Providers Care Document Control Supervisor Name Role Phone MACYGABE LA NENALENNY Primary Care Provider [phone] Assessment Encounter Date Assessment Date Assessment LastModified by Organization Details LastModified Time 08/21/2021 08/21/2021 Annual gynecological exam performed. Patient will come back in a year unless there are new symptoms. Suggest Calcium with Vitamin D if not eating in diet. Patient advised to get annual flu shot. Recommend yearly physicals and preform monthly breast exams. Genetic testing is available for patients with family history of cancer. Engage in safe sexual practices, use condoms. Encouraged to have daily exercise. Avoid tobacco and illicit drugs, moderation of alcohol. If BMI greater than 25 dietary consult advised. If you have any questions please call or email. mammogram order given Not available 08/21/2021 14:23:37 11/21/2022 11/21/2022 Annual gynecological exam performed. Patient will come back in a year unless there are new symptoms. Suggest Calcium with Vitamin D if not eating in diet. Patient advised to get annual flu shot. Recommend yearly physicals and preform monthly breast exams. Genetic testing is available for patients with family history of cancer. Engage in safe sexual practices, use condoms. Encouraged to have daily exercise. Avoid tobacco and illicit drugs, moderation of alcohol. If BMI greater than 25 dietary consult advised. If you have any questions please call or email. [email or web address] Not available 11/21/2022 15:42:54 01/06/2024 01/06/2024 Annual gynecological exam performed. Patient will come back in a year unless there are new symptoms. Take Calcium with Vitamin D 1200mg daily if not receiving in daily diet. It is strongly advised to have an annual flu shot and up can obtain at most pharmacies. If you have not had a TDap shot in the last 10 years you should obtain one as well.. Encourage safe sexual practices, to use condoms and limit partners if not already in a monogamous relationship. Do monthly self breast exams. Engage in daily exercise of low impact aerobic exercise 45-60 minutes 4-5 times weekly. Avoid tobacco and illicit drugs as well as using moderation with alcohol intake less than 1-2 8 oz beverages daily. This lifestyle behavior pattern will lead to less health conditions and longer life span. If BMI greater than 25 weight watchers or dietary consult advised. Patient received above instructions, and questions have been answered. If you have any questions please call or respond to this email. Patient was made aware of the patient portal and may obtain a paper copy of today's plan if desired. Not available 01/06/2024 14:40:34 12/08/2024 12/08/2024 Annual gynecological exam performed. Patient will come back in a year unless there are new symptoms. [email or web address] Not available 12/08/2024 15:04:38 Plan of Treatment Reminders Order Date Submit Date Provider Last Modified By Organization Details Last Modified Time Details Appointments None recorded. Lab unlisted lab - women's health swab, JB 2024 025 [facility] (Lab), [address], [place], [address], 5 11:17:11 Referral None recorded. Procedures None recorded. Surgeries None recorded. Imaging None recorded. Medication Orders clobetasol 0.05 % topical ointment 2020 021 [id number], [address] [place], [address], 14:23:30 Patient TargetsNo targets recorded. Patient InstructionsNo instructions recorded. Reason for Referral None Reported. Results Created Date Observation Date Name Description Value Unit Range Abnormal Flag Note LastModifiedBy Organization Detail LastModifiedTime 01/06/20 24 01/06/2024 IMAGE GUIDE D PAP AND HPV REGAR DLESS image guided Pap, HPV regardless of Pap result SEE RESULT S BELOW CASE REPOR T: Cytol ogy Gynec ologi christel Repor t Case: [id number] Autho arnaldo walters Provi ilene: Deana griffin NP Colle cted: 01/05 1724 Order ing Locat ion: [place] [facility] Recei ilan: 01/06 0043 First Scree n: Valeria Titus Speci men: Inderjit palacio Pap - Image d, Cervi x STATE MENT OF ADEQU ACY: Satis facto ry for evalu ation Trans forma tion zone compo nent prese nt ----- ----- ----- ----- ----- ----- ----- ----- ----- ----- ----- ----- ----- ----- ----- ----- ----- ---- FINAL DIAGN OSIS: Negat yari for Intra epith elial Lesio n or Kirk allen (NIL) . Funga l organ isms morph ologi adele consi stent with Misti da spp. Elect servando underwood joey d by Valeria Titus on 2023 at 2:25 PM ----- ----- ----- ----- ----- ----- ----- ----- ----- ----- ----- ----- ----- ----- ----- ----- ----- ---- HPV RESUL TS: HPV mRNA E6/E7 : No HPV mRNA Detec husam NOTE: This high risk HPV mRNA assay detec ts fourt een high- risk HPV types (16, 18, 31, 33, 35, 39, 45, 51, 52, 56, 58, 59, 66, 68) witho ut diffe renti ation . COMME NT: This speci men was revie wed by a Cytot echno logis t and/o r Patho logis t (as indic ated in this repor t) after evalu ation using the Thinp rep Imagi ng Syste m. CLINI CHRISTEL INFOR MATIO N: Menst rual Statu s: LMP (if appli cable ): 2022 Clini christel Histo ry/Pr eviou s Pap: Type of Neopl jenni (if appli cable ): Signi fican t Clini christel Findi ngs: Other Histo ry: Hormo katy (if appli cable ): PAP EDUCA GIOVANI L NOTE: The Pap Test is a scree pia test with an inher ent false negat yari rate. Liqui d-bas ed sampl ing may decre ase, but will not elimi jc, false negat yari resul ts. A negat yari resul t does not precl ude the prese nce and/o r devel opmen t of disea se, since the prese nce of abnor mal cells in the sampl e depen ds on the locat ion of the lesio n and sampl ing techn ique. Singh nued regul ar scree pia is the best metho d of cance r preve ntion . If repor husam cytol ogic findi ng do not corre late with physi christel and/o r histo rical findi ngs, furth er inves tigat ion is recom christina d, as clini adele bhatia nted. Not Available [facility] (Lab) [address], [place], [address], 01/11/2024 15:28:50 12/09/19 25 12/08/2024 WOMEN 'S HEALT H SWAB, JB van species, tma Negati ve negati ve Not Available [facility] (Lab) [address] [place], [address], 12/09/2024 11:17:11 12/09/19 25 12/08/2024 WOMEN 'S HEALT H SWAB, JB van glabrata, tma Negati ve negati ve Not Available [facility] (Lab) [address] [place], [address], 12/09/2024 11:17:11 12/09/19 25 12/08/2024 WOMEN 'S HEALT H SWAB, JB trichomonas vaginalis, tma Negati ve negati ve This assay tests for and diffe renti judd regalado en Misti da glabr ryan, the Misti da speci es group (C. albic ans, C. tropi calis , C. parap aryan is, C. dubli niens is), and Trich omona s vagin cesar by Trans cript ion-M ediat ed Ampli ficat ion (TMA) . Not Available [facility] (Lab) [address], [place], [address], 12/09/2024 11:17:11 12/09/19 25 12/08/2024 WOMEN 'S HEALT H SWAB, JB bacterial vaginosis (bv), tma Negati ve negati ve This test detec ts ribos omal RNA from bacte linnea assoc iated with bacte rial vagin osis (BV), inclu ding Lacto bacil nancy (L. gasse ri, L. crisp atus and L. jense janak), Gardn erell a vagin cesar, and Atopo bium vagin ae by Trans cript ion-M ediat ed Ampli ficat ion (TMA) . A singl e quali tativ e resul t is repor husam based on instr ument softw are to deter mine BV posit yari or negat yari statu s. Not Available [facility] (Lab) [address], [place], [address], 12/09/2024 11:17:11 09/06/19 21 09/06/2020 MAMMO , scree pia, bilat eral No observ ation record ed. [facility] [address], [place], [address], 09/19/2020 11:01:26 09/30/19 22 09/30/2021 MAMMO , scree pia, bilat eral No observ ation record ed. [facility] [address], [place], [address], 10/07/2021 10:49:15 04/16/20 23 04/15/2023 MAMMO , scree pia, bilat eral No observ ation record ed. [email or web address] [address], [place], [address], 04/21/2023 10:28:42 04/16/20 23 04/15/2023 MAMMO , scree pia, bilat eral No observ ation record ed. [email or web address] [address], [place], [address], 04/21/2023 10:28:03 05/20/20 23 05/20/2023 MAMMO , diagn ostic , digit al, bilat eral No observ ation record ed. [email or web address] [facility] [address], [place], [address], 05/20/2023 18:33:24 05/20/20 23 05/20/2023 MAMMO , diagn ostic , digit al, bilat eral No observ ation record ed. [email or web address] [facility] [address], [place], [address], 05/20/2023 18:36:56 Result Notes None recorded. Problems Name Problem SNOMED Code Status Onset Date Resolution Date Notes Provider Name and Address Organization Details Recorded Time Screenin g for malignan t neoplasm of rectum Completed 201808/21/2021 Encounte r for screenin g for malignan t neoplasm of rectum;R ecorded Elsewher e: No [facility] S ource: EHR Animal Science Professor francesco: N Practi ce ID: 0001 Ariel lable Time: 10:00:00 AM Aury Ro [facility] [place] [facility] 13:54:53 Speciali zed medical examinat ion Completed 201408/21/2021 Gynecolo gical Examinat ion;Antonio rded Elsewher e: No Locat ion: [facility] S ource: EHR Animal Science Professor francesco: N Rowdy ce ID: 0001 Ariel lable Time: 08:30:00 AM Aury Ro reva, [facility] 13:54:59 Vaginola bial hernia Completed 201508/21/2021 Other specifie d noninfla mmatory disorder s of vagina;R ecorded Elsewher e: No Locat ion: [facility] S ource: EHR Animal Science Professor francesco: N Carlosti ce ID: 0001 Ariel lable Time: 02:00:00 PM Aury Ro [facility], [facility] 13:55:05 Cyst of ovary [id number] Completed 201408/21/2021 Ovarian cyst;Rec orded Elsewher e: No Locat ion: [facility] S ource: EHR Animal Science Professor francesco: N Rowdy ce ID: 0001 Ariel lable Time: 09:00:00 AM Aury Ro [facility], [facility] 13:54:25 Depressi ve disorder [id number] Completed 201408/21/2021 Depressi on;Recor ded Elsewher e: No Locat ion: [facility] S ource: EHR Animal Science Professor francesco: N Carlosti ce ID: 0001 Ariel lable Time: 08:30:00 AM Aury Ro reva, [facility] 13:54:[address] Concept Completed 201508/21/2021 Encntr for general adult medical exam w/o abnormal findings ;Recorde d Elsewher e: No Locat ion: [facility] S ource: EHR Animal Science Professor francesco: N Carlosti ce ID: 0001 Ariel lable Time: 11:00:00 AM Aury Ro reva, [facility] 13:54:55 Removal of intraute rine device Completed 201408/21/2021 Encounte r for removal of intraute rine contrace ptive device;R ecorded Elsewher e: No [facility]at [facility] S ource: EHR Animal Science Professor francesco: N Carlosti ce ID: 0001 Ariel lable Time: 10:30:00 AM Aury ardon, [facility] 13:54:45 Vaginiti s and vulvovag initis Completed 201408/21/2021 Vaginiti s;Record ed Elsewher e: No [facility] S ource: EHR Animal Science Professor francesco: N Rowdy ce ID: 0001 Ariel lable Time: 11:00:00 AM Aury ardon, [facility] 13:55:03 Insertio n of intraute rine contrace ptive device Completed 201408/21/2021 Encounte r for insertio n of intraute rine contrace ptive device;R ecorded Elsewher e: No [facility] S ource: EHR Animal Science Professor francesco: Teresa Reno ce ID: 0001 Ariel lable Time: 01:00:00 PM Aury ardon [facility] 13:54:41 Finding of trunk structur e [id number] Completed 201408/21/2021 Abdomina l or pelvic swelling , mass, or lump, unspecif ied site;Rec orded Elsewher e: No Locat ion: [facility] S ource: EHR Animal Science Professor francesco: N Carlosti ce ID: 0001 Ariel lable Time: 08:30:00 AM Aury ardon [facility] 13:54:38 Dysmenor marlyn [id number] Completed 201108/21/2021 Dysmenor marlyn;Rec orded Elsewher e: No Locat ion: [facility] N Practi ce ID: 0001 Ariel lable Time: 10:00:00 AM Aury ardon [facility] 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 13:54:57 Finding of trunk structur e [id number] Completed 201408/21/2021 Intra-ab d and pelvic swelling , mass and lump, unsp site;Rec orded Elsewher e: No Locat ion: [facility] S ource: [facility] francesco: N Carlosti ce ID: 0001 Ariel lable Time: 01:30:00 PM Aury ardon [facility] 13:54:36 Hypertro phy of clitoris [id number] Completed 201908/21/2021 Oth noninfla mmatory disorder s of vulva and perineum ;Recorde d Elsewher e: No Locat ion: [facility] S ource: [facility] francesco: N Carlosti ce ID: 0001 Ariel lable Time: 11:45:00 AM Aury ardon [facility] 13:54:40 Female genital organ symptoms [id number] Completed 201408/21/2021 Unspecif ied symptom associat ed with female genital organs;R ecorded Elsewher e: No Locat ion: [facility] S ource: [facility] francesco: N Practi ce ID: 0001 Ariel lable Time: 08:30:00 AM Aury ardon [facility] 13:54:33 Risk of exposure to communic able disease [id number] Completed 201108/21/2021 Contact with or exposure to communic able diseases , other communic able diseases ;Recorde d Elsewher e: No Locat ion: [facility] S ource: EHR Animal Science Professor francesco: Y Practi ce ID: 0001 Ariel lable Time: 11:40:00 AM Aury Ro [facility] 13:54:49 Clinical finding Completed 201408/21/2021 Presence of (intraut erine) contrace ptive device;R ecorded Elsewher e: No Locat ion: [facility] S ource: EHR Animal Science Professor francesco: N Practi ce ID: 0001 Ariel lable Time: 01:00:00 PM Aury Ro [facility] 13:54:05 Tobacco dependen ce syndrome [id number] Completed 201408/21/2021 Tobacco abuse;Re corded Elsewher e: No Locat ion: [facility] S ource: EHR Animal Science Professor francesco: N Practi ce ID: 0001 Ariel lable Time: 08:30:00 [facility] 13:55:01 Right lower quadrant pain [id number] Completed 201408/21/2021 Right lower quadrant pain;Pra ctice ID: 0001 Aury Ro [facility], [facility] 13:54:48 Pregnanc y test negative [id number] Completed 201408/21/2021 Encounte r for pregnanc y test, result negative ;Practic e ID: 0001 Aury Ro [facility], [facility] 13:54:43 Contrace ptive sheath status [id number] Completed 201508/21/2021 Encounte r for routine checking of intraute rine contrace p dev;Prac arcelia ID: 0001 Aury ardon [facility] 13:54:07 Acute vaginiti s [id number] Completed 201508/21/2021 Acute vaginiti s;Practi ce ID: 0001 Aury ardon [facility] 13:54:01 Adult health examinat ion Completed 201408/21/2021 ROUTINE MEDICAL EXAM;Rec orded Elsewher e: No Locat ion: [facility] S ource: EHR Animal Science Professor francesco: N Practi ce ID: 0001 Ariel lable Time: 08:30:00 AM Aury ardon [facility] 13:54:03 Screenin g for malignan t neoplasm of cervix Completed 201108/21/2021 Screenin g for malignan t neoplasm s of the cervix;R ecorded Elsewher e: No Locat ion: [facility] S ource: EHR Animal Science Professor francesco: N Practi ce ID: 0001 Ariel lable Time: 10:00:00 AM Auyr ardon [facility] 13:54:51 Problem Notes None recorded. Procedures Surgical History Date Name Laterality Status Provider Name and Address Organization Details Recorded Time 024 Date of Last Pap Smear completed Aury Ro [facility] 01/06/2024 16:39:39 024 destruction of tissue of breast completed Aury Ro [facility] 01/06/2024 19:24:06 024 Date of Last Mammogram completed Sugar Dolan [facility] 12/08/2024 15:07:55 024 Bilateral Mastectomy completed Aury Ro [facility] 01/06/2024 14:14:13 022 [facility] 15:32:14 022 [facility]2022 15:33:54 022 Date of Last [facility] 01/06/2024 14:14:12 020 removal of mole of skin by excision completed [facility] 08/21/2021 11:18:49 020 IUD Removal completed Deana Lugo CNM [address], [place], [address], [facility] 08/29/2020 12:05:38 020 IUD Insertion completed Deana Lugo CNM [address], [place], [address], [facility] 08/29/2020 12:05:50 020 Skin Tag Removal completed Deana Lugo CNM [address], [place], [address], [facility] 08/03/2020 14:32:48 020 IUD Removal completed Aury Ro [facility] 08/03/2020 14:26:43 020 [facility]/2020 14:29:46 019 vaginal biopsy [facility] 08/21/2021 11:18:19 019 partial [facility] rotator [facility] 07/02/2020 23:18:33 015 Hernia repair w/mesh completed Aury [facility] 01/06/2024 19:23:09 010 cholecystectomy completed [facility] 07/02/2020 23:16:16 009 Upper gi endoscopy performed completed [facility] 01/06/2024 19:23:30 007 ligation of bilateral fallopian tubes completed [facility] 07/02/2020 23:17:24 997 section completed [facility] 07/02/2020 23:15:54 993 termination of completed [facility] 11/21/2022 15:34:09 990 termination of completed [facility] 11/21/2022 15:34:07 Imaging Results Imaging Date Name Status LastModified by [facility] Details LastModified Time 09/06/2020 MAMMO, screening, bilateral completed [facility] [address], [place], [address], 09/19/2020 11:01:26 09/30/2021 MAMMO, screening, bilateral completed [facility] [address], [place], [address], 10/07/2021 10:49:15 04/15/2023 MAMMO, screening, bilateral completed [email or web address] [address], [place], [address], 04/21/2023 10:28:42 04/15/2023 MAMMO, screening, bilateral completed [email or web address] [address], [place], [address], 04/21/2023 10:28:03 05/20/2023 MAMMO, diagnostic, digital, bilateral completed [email or web address] [facility] [address], [place], [address], 05/20/2023 18:33:24 05/20/2023 MAMMO, diagnostic, digital, bilateral completed [email or web address] [facility] [address], [place], [address], 05/20/2023 18:36:56 Procedure Notes None recorded. Medical Equipment None Reported. Allergies Allergen ID Allergen Name Allergen Category Reaction Reaction Severity Criticality Documentation Date Start Date Code Code System Note Provider Name and Address Organization Details Recorded Time 0225 Flagyl medicatio n Not available Not available Not available 08/03/2020 6 RxNorm Aury Ro [place], [place] - [facility] 0 14:30:28 Medications Name Sig Start Date Stop Date Status Note LastModified by Organization Details LastModified Time cyclobenz aprine 10 mg tablet 12/08 completed Not Available Not Available Not Available amoxicill in 500 mg capsule TAKE 1 CAPSULE BY MOUTH EVERY 8 HOURS UNTIL FINISHED 11/21 completed Not Available Not Available Not Available latanopro st 0.005 % eye drops INSTILL ONE DROP IN BOTH EYES ONCE AT NIGHT active Not Available Not Available No t Available Mirena 21 mcg/24 hr (up to 8 years) 52 mg intrauter ine device Take by intraute rine route. 2019 active inserted 0 and will 8 Not Available Not Available Not Available doxycycli ne hyclate 100 mg capsule TAKE 1 TABLET/C APSULE (100 MG TOTAL) BY MOUTH TWICE A DAY FOR 14 DAYS 01/05 completed Not Available Not Available Not Available Effexor XR 75 mg capsule,e xtended release take 1 Capsule (75MG) by oral route every 12 hours with food 11/28 completed Prescrib ed Elsewher e: No Locat ion: [facility] M odify By: [email or web address] E ncounter DateTime : 12/27/19 14 11:00:00 AM Not Available Not Available Not Available Vitabee/C tablet 09/17 completed Prescrib ed Elsewher e: Yes Loca tion: Donna roberson [facility] odify By: [email or web address] z Rayna watkins DateTime : 06/11/20 12 11:40:13 AM Not Available Not Available Not Available Prozac 40 mg capsule take 1 capsule (40MG) by oral route every day in the morning 11/23 completed Prescrib ed Elsewher e: No Locat ion: Donna roberson [facility] odify By: param tz Samanta [email or web address] DateTime : 10/24/19 12 03:29:32 PM Not Available Not Available Not Available fluconazo le 150 mg tablet TAKE 1 TABLET BY ORAL ROUTE ONCE TODAY AND AGAIN IN 72 HOURS 12/08 completed Not Available Not Available Not Available spironola ctone 100 mg tablet TAKE 1 TABLET BY MOUTH EVERY DAY 12/08 completed Not Available Not Available Not Available sertralin e 100 mg tablet TAKE 1 AND 1/2 TABLET BY MOUTH EVERY DAY active Not Available Not Available No t Available metformin 850 mg tablet take 1 tablet by oral route 2 times every day with morning and evening meals 08/21 completed Prescrib ed Elsewher e: Yes Loca tion: Cely da [facility] odify By: mechelle vick DateTime : 03/02/20 18 09:30:00 AM Not Available Not Available Not Available glimepiri de 2 mg tablet take 1 tablet by oral route every day 08/21 completed Prescrib ed Elsewher e: Yes Loca tion: Donna roberson [facility] odify By: mechelle vick DateTime : 03/02/20 18 09:30:00 AM Not Available Not Available Not Available glimepiri de 1 mg tablet TAKE 1 TABLET BY MOUTH EVERY DAY IN THE MORNING 08/21 completed Not Available Not Available Not Available citalopra m 20 mg tablet TAKE 1 TABLET BY MOUTH EVERY DAY active Not Available Not Available No t Available Metrogel Vaginal 0.75 % (37.5 mg/5 gram) insert 1 applicat orful by vaginal route every day at bedtime 09/05 completed Prescrib ed Elsewher e: No Locat ion: Donna roberson [facility] odify By: alex watkins DateTime : 09/14/19 11:45:00 AM Not Available Not Available Not Available pravastat in 10 mg tablet TAKE 1 TABLET BY MOUTH EVERY DAY AT BEDTIME active Not Available Not Available No t Available Effexor XR 150 mg capsule,e xtended release TAKE 1 CAPSULE DAILY WITH FOOD 11/12 completed Prescrib ed Elsewher e: No [facility] By: danie dwyer DateTime : 10/24/19 02:05:52 PM Not Available Not Available Not Available glimepiri de 4 mg tablet TAKE 1 TABLET BY MOUTH TWICE A DAY active Not Available Not Available No t Available Valtrex 1 gram tablet take 1 tablet by oral route every 12 hours x 7d 2018 active Prescrib ed Elsewher e: No Locat ion: Donna roberson [facility] odify By: sunday silverio DateTime : 06/17/20 09:45:00 AM Not Available Not Available Not Available hydroxyzi ne HCl 25 mg tablet TAKE 1 TABLET BY MOUTH THREE TIMES A DAY NEEDED FOR ANXIETY active Not Available Not Available No t Available lisinopri l 5 mg tablet TAKE 1 TABLET BY MOUTH EVERY DAY active Not Available Not Available No t Available metoprolo l succinate ER 25 mg tablet,ex tended release 24 hr 25 MG ORALLY DAILY PLEASE CONTACT OFFICE WITH BP READINGS active Not Available Not Available No t Available clobetaso l 0.05 % topical ointment apply by topical route 2 times every day a thin layer to the affected area(s) active Not Available Not Available No t Available methylpre dnisolone 4 mg tablets in a dose pack 08/21 completed Not Available Not Available Not Available fluticaso ne propionat e 50 mcg/actua tion nasal spray,kamini pension USE 2 SPRAYS INTO EACH NOSTRIL DAILY 08/21 completed Not Available Not Available Not Available metformin ER 500 mg tablet,ex tended release 24 hr TAKE 2 TABLETS BY MOUTH IN THE EVENING active Not Available Not Available No t Available sertralin e 50 mg tablet TAKE 1 TABLET BY MOUTH EVERY DAY 09/05 completed Not Available Not Available Not Available lisinopri l 2.5 mg tablet take 1 tablet by oral route every day 09/17 completed Prescrib ed Elsewher e: Yes Loca tion: [facility] odify By: kiera watkins DateTime : 11/22/19 12 05:42:11 PM Not Available Not Available Not Available amoxicill in 875 mg-potass ium clavulana te 125 mg tablet TAKE 1 TABLET BY MOUTH EVERY 12 HOURS 01/05 completed Not Available Not Available Not Available oxycodone 5 mg tablet 01/05 completed Not Available Not Available Not Available Wellbutri n XL 300 mg 24 hr tablet, extended release TAKE 1 TABLET BY ORAL ROUTE EVERY DAY 09/17 completed Prescrib ed Elsewher e: No [facility] odify By: kiera watkins DateTime : 06/29/20 15 08:30:41 AM Not Available Not Available Not Available eszopiclo ne 2 mg tablet 2 MG ORALLY ONCE 12/08 completed Not Available Not Available Not Available Boostrix Tdap 2.5 Lf unit-8 mcg-5 Lf/0.5 mL intramusc ular syringe PHARMACY ADMINIST ERED 01/05 completed Not Available Not Available Not Available chlorhexi dine gluconate 0.12 % mouthwash RINSE WITH 1 CAPFUL TWICE DAILY FOR 30 SECONDS, AND SPIT OUT. USE UNTIL GONE 08/21 completed Not Available Not Available Not Available Vitamin D3 10 mcg (400 unit) capsule 09/17 completed Prescrib ed Elsewher e: Yes Loca tion: Donna [facility] odify By: kiera watkins DateTime : 11/24/19 12 10:00:00 AM Not Available Not Available Not Available varenicli ne tartrate 1 mg tablet TAKE 1 TABLET BY MOUTH TWICE A DAY active Not Available Not Available No t Available varenicli ne tartrate 0.5 mg (11)-1 mg (42) tablets in a dose pack TAKE PER PACKAGE DIRECTIO NS 12/08 completed Not Available Not Available Not Available Chantix 0.5 mg tablet take 1 tablet by oral route 2 times every day for 3 days with a glass of water after meals 12/26 completed Prescrib ed Elsewher e: Yes Loca tion: [facility] odify By: cmedical Encount er DateTime : 06/11/20 12 11:40:13 AM Not Available Not Available Not Available [place] Oil 1,000 mg capsule 12/27 completed Prescrib ed Elsewher e: Yes Loca tion: Donna [facility] odify By: nancy watkins DateTime : 06/11/20 12 11:40:13 AM Not Available Not Available Not Available cholecalc iferol (vitamin D3) 1,250 mcg (50,000 unit) capsule TAKE 1 CAPSULE BY MOUTH ONCE WEEKLY 11/21 completed Not Available Not Available Not Available FeroSul 325 mg (65 mg iron) tablet TAKE 1 TABLET BY MOUTH ONCE DAILY active Not Available Not Available No t Available Accu-Chek Michelle Plus test strips USE TO TEST 3 TIMES A DAY BEFORE MEALS 12/08 completed Not Available Not Available Not Available Invokana 100 mg tablet take 1 tablet by oral route every day before the first meal of the day 03/31 completed Prescrib ed Elsewher e: Yes Loca tion: Donna [facility] odify By: [email or web address] Roberson ncounter DateTime : 03/02/20 18 09:30:00 AM Not Available Not Available Not Available Farxiga 10 mg tablet TAKE 1 TABLET BY MOUTH EVERY DAY 11/21 completed Not Available Not Available Not Available Farxiga 5 mg tablet take 1 tablet by oral route every day in the morning 08/21 completed Prescrib ed Elsewher e: Yes Loca tion: Donna [facility]bers[facility] odify By: [id number]|2025-01-16 10:38:00|2025-01-16 10:38:00|XMS_ITS|BKG DAEMON|External Medical Summaries|[id number]|" Encounter Summary Created on: January 16, 2025 Merary Paul : 1970 Sex: Female Author Organization [facility] Healthcare Address [address] [place] [address] Care Team Providers Care Document Control Supervisor Name Role Phone Unavailable Primary Care Provider Unavailabl e Reason for Visit * Diagnostic Imaging (Routine) - Closed Specialty Diagnoses / Procedures Referred By Juanita beckford Referred To Contact Procedures Breast Imaging Screening Outside Reference Reese Espitia NP Phone: tel: fax: Referral ID Status Reason Start Date Expiration Date Visits Re quested Visits Authorized [id number] Closed 06/18/2023 07/17/2024 1 1 Encounter Details Date Type Department Care Team (Late st Contact Info) Description 03/31/2019 Hospital Encounter [facility] [address] [place] [id number] Social History Tobacco Use Types Packs/Day Years Used Date Smoking Tobacco: Every Day Cigarettes Smokeless Tobacco: Never AUDIT-C Answer Date Recorded Q1: How often [...] on file 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 Monthly or less 01/04/2025 12:35 PM CDT Elisa Verdugo RN Q2: How many drinks containing alcohol do you have on a typical day when you are drinking? 1 or 2 01/04/2025 12:35 PM CDT Elisa Verdugo RN Q3: How often do you have six or more drinks on one occasion? Never 01/04/2025 12:35 PM CDT Elisa Verdugo RN documented as of this encounter Plan of Treatment Upcoming Encounters Date Type Department Care Team (Late st Contact Info) Description 01/04/2025 11:59 PM CDT Anesthesia Event [facility] Operating [address] [place] [address] Marisela Champion NP [id number] [facility] [address] [place], [place] [id number] 01/31/2025 Hospital Encounter [facility] [address] [place] [address] Liam Germain MD [address] [place] [address] Scheduled Procedures Name Priority Associated Diagnoses Date/Ti me XI REPAIR INCISIONAL HERNIA - LAPAROSCOPIC ROBOTIC ASSISTED Incarcerated incisional hernia XI ROBOTIC ABDOMINAL WALL RECONSTRUCTION Incarcerated incisional hernia documented as of this encounter Procedures Procedure Name Priority Date/Time Associated Diagnosis Comments BREAST IMAGING MG SCREENING OUTSIDE REFERENCE Routine 03/31/2019 12:00 AM CDT documented in this encounter Results * Breast Imaging Screening Outside Reference (03/31/2019 12:00 AM CDT) Impressions RAD_MAMMO_[facility] - 06/18/2023 5:56 PM CDT These images are for Reference purposes only and have not been reviewed by [facility]. There will be no report generated by a [facility] Radiologist. Narrative RAD_MAMMO_[facility] - 06/18/2023 5:56 PM CDT EXAMINATION: Images For Reference Purposes Only us Reese Espitia NP IMG MAMMO PROCEDURES Final Result RAD[facility]MAMMO_[facility] documented in this encounter Visit Diagnoses Not on filedocumented in this encounter "
--- OUTSIDE RECORDS SUMMARY | 2025-01-16 10:38 | XMS_ITS | Encounter Summary ---
Author Organization 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 Name Role Phone Unavailable Primary Care Provider Unavailabl e Reason for Visit * Diagnostic Imaging (Routine) - Closed Specialty Diagnoses / Procedures Referred By Juanita beckford Referred To Contact Diagnoses Microcalcification of left breast on mammography Procedures Breast Imaging Screening Outside Reference Reese Espitia NP Phone: tel: fax: Referral ID Status Reason Start Date Expiration Date Visits Re quested Visits Authorized [id number] Closed 06/18/2023 07/17/2024 1 1 Encounter Details Date Type Department Care Team (Late st Contact Info) Description 09/06/2020 Hospital Encounter [facility] [place] [address] Social History Tobacco Use Types Packs/Day [...] on file 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 Monthly or less 01/04/2025 12:35 PM Elisa Valladares, ALIZE Q2: How many drinks containing alcohol do you have on a typical day when you are drinking? 1 or 2 01/04/2025 12:35 PM Elisa Valladares RN Q3: How often do you have six or more drinks on one occasion? Never 01/04/2025 12:35 PM Elisa Valladares RN documented as of this encounter Plan of Treatment Upcoming Encounters Date Type Department Care Team (Late st Contact Info) Description 01/04/2025 11:59 PM CDT Anesthesia Event [facility] [address] [place] [id number] Marisela Champion NP [id number] [facility] [address] [place] [address] 01/31/2025 Hospital Encounter [facility] [address] [place] [phone] Liam Germain MD [address] [place], [place] [id number] Scheduled Procedures Name Priority Associated Diagnoses Date/Ti me XI REPAIR INCISIONAL HERNIA - LAPAROSCOPIC ROBOTIC ASSISTED Incarcerated incisional hernia XI ROBOTIC ABDOMINAL WALL RECONSTRUCTION Incarcerated incisional hernia documented as of this encounter Procedures Procedure Name Priority Date/Time Associated Diagnosis Comments BREAST IMAGING MG SCREENING OUTSIDE REFERENCE Routine 09/06/2020 12:00 AM 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 There will be no report generated by a [facility] Radiologist. Narrative RAD_MAMMO_[facility] - 06/18/2023 5:57 PM CDT EXAMINATION: Images For Reference Purposes Only us Reese Espitia NP IMG MAMMO PROCEDURES Final Result RAD_MAMMO_[facility] documented in this encounter Visit Diagnoses Not on filedocumented in this encounter
--- OUTSIDE RECORDS SUMMARY | 2025-01-16 10:38 | XMS_ITS ---
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 Overview (10/15/2023): Oth noninflammatory disorders of vulva and perineum;Recorded Elsewhere: No Location: [facility] Source: EHR Chronic: N Practice ID: [id number] Billable Time: 11:45:00 AM Acute vaginitis 11/13/2015 Overview (10/15/2023): Acute vaginitis;Practice ID: [id number] Right lower quadrant pain 07/17/2015 Overview (10/15/2023): Right lower quadrant pain;Practice ID: [id number] Cyst of ovary 04/17/2015 Overview (10/15/2023): Ovarian cyst;Recorded Elsewhere: No Location: [facility] Source: EHR Chronic: N Practice ID: [id number] Billable Time: 09:00:00 AM Female genital symptoms 04/17/2015 Overview (10/15/2023): Unspecified symptom associated with female genital organs;Recorded Elsewhere: No Location: [facility] Source: EHR Chronic: N Practice ID: [id number] Billable Time: 08:30:00 AM Depressive disorder 12/27/2014 Overview (10/15/2023): Depression;Recorded Elsewhere: No Location: [facility] Source: EHR Chronic: N Practice ID: [id number] Billable Time: 08:30:00 AM Tobacco dependence syndrome 12/27/2014 Overview (10/15/2023): Tobacco abuse;Recorded Elsewhere: No Location: [facility] Source: EHR Chronic: N Practice ID: [id number] Billable Time: 08:30:00 AM Dysmenorrhea 11/24/2011 Overview (10/15/2023): Dysmenorrhea;Recorded Elsewhere: No Location: [facility] Source: EHR Chronic: N Practice ID: [id number] Billable Time: 10:00:00 AM Current Treatment and Therapy Plans No current plan information found. Past Treatment and Therapy Plans No past plan information found. Lifetime Dose Tracking * Chemical Lifetime Dose Automatic Entry Manual Entr y DLP 668 mGycm 668 mGycm 0 mGycm
--- OUTSIDE RECORDS SUMMARY | 2025-01-16 10:38 | XMS_ITS | Clinical Summary ---
Author Organization [facility] Address [address] [place] [address] Care Team Providers Care Blunger Name Role Phone Deana Lugo NP Unavailable [phone] Michelle Pike MD Primary Care Provider Allergies Active Allergy Reactions Criticality Noted Date [...] ting Take 1 capsule by mouth nightly Discontin ued(Thera py completed ) cetirizine (ZyrTEC) 10 mg tablet Take 1 tablet (10 mg total) by mouth nightly Aller-amadeo Discontin ued(Thera py completed ) sertraline (ZOLOFT) 100 mg tablet TAKE 1 AND 1/2 TABLET BY MOUTH EVERY DAY 09/14/19 24 Discontin ued(Thera py completed ) eszopiclone (LUNESTA) 2 mg tablet 2 MG ORALLY ONCE 09/10/19 24 025 Discontin ued(Thera py completed ) bacitracin-polymy bethany B (bacitracin zinc-polymyxin B) ointment Apply topically 2 (two) times a day 11/24/19 24 025 Discontin ued(Thera py completed ) amoxicillin-clavu lanate (AUGMENTIN) 875-125 mg per tablet Take 1 tablet by mouth every 12 (twelve) hours Discontin ued(Thera py completed ) doxycycline (doxycycline hyclate) 100 mg capsule TAKE 1 TABLET/CAPSULE (100 MG TOTAL) BY MOUTH TWICE A DAY FOR 14 DAYS Discontin ued(Thera py completed ) fluconazole (DIFLUCAN) [...] of vulva and perineum;Recorded Elsewhere: No Location: [facility] Source: EHR Chronic: N Practice ID: [id number] Billable Time: 11:45:00 AM Acute vaginitis 11/13/2015 Overview (10/15/2023): Acute vaginitis;Practice ID: [id number] Right lower quadrant pain 07/17/2015 Overview (10/15/2023): Right lower quadrant pain;Practice ID: [id number] Cyst of ovary 04/17/2015 Overview (10/15/2023): Ovarian cyst;Recorded Elsewhere: No Location: [facility] Source: EHR Chronic: N Practice ID: [id number] Billable Time: 09:00:00 AM Female genital symptoms 04/17/2015 Overview (10/15/2023): Unspecified symptom associated with female genital organs;Recorded Elsewhere: No Location: [facility] Source: EHR Chronic: N Practice ID: [id number] Billable Time: 08:30:00 AM Depressive disorder 12/27/2014 Overview (10/15/2023): Depression;Recorded Elsewhere: No Location: [facility] Source: EHR Chronic: N Practice ID: [id number] Billable Time: 08:30:00 AM Tobacco dependence syndrome 12/27/2014 Overview (10/15/2023): Tobacco abuse;Recorded Elsewhere: No Location: [facility] Source: EHR Chronic: N Practice ID: [id number] Billable Time: 08:30:00 AM Dysmenorrhea 11/24/2011 Overview (10/15/2023): Dysmenorrhea;Recorded Elsewhere: No Location: [facility] Source: EHR Chronic: N Practice ID: [id number] Billable Time: 10:00:00 AM Encounters Date Type Department Care Team Description 01/05/2025 [facility] Minimally Invasive Surgery [address] [place] [address] 12th [place], [place] [address] Giselle Alex 01/04/2025 1:00 PM CDT Pre-Admission Testing [facility] ([facility]) [address] [place] [address] Preoperative testing (Primary Dx) 01/04/2025 8:00 AM CDT Clinical Support [facility] Diabetes and Nutrition [address] [place] [address] [place] [address] Ductal carcinoma in situ (DCIS) of left breast 01/02/2025 Orders Only [facility] Nutrition [address] [place] [address] [place] [address] Ductal carcinoma in situ (DCIS) of left breast (Primary Dx) 01/02/2025 Telephone [facility] Surgery [facility] 6th [place] [address] [place] [address] Kevin Gruber RN 12/29/2024 Telephone [facility] Nutrition [address] [place] [address] [place] [address] 10/21/2024 11:00 AM BEAN VINER Clinical Support [facility] Nutrition [address] [place] [address] [place] [address] Ductal carcinoma in situ (DCIS) of left breast (Primary Dx) from Last 3 Months Immunizations Immunization Administration Dates Next Due Influenza, Quadrivalent, Mayra l Culture-based MDCK, Preservative Free, Antibiotic Free, Intramuscular 05/13/2023,05/17/2022,06/14/2021,05/25,06/26/2018,05/28/2017 Influenza, Quadrivalent, Spl it, Preservative Free, Intramuscular 06/24/2020,05/16/2016 Tdap 06/24/2020 ZOSTER Recombinant 09/15/2022,07/02/2022 Surgical History Surgery Date Site/Laterality Comments BREAST BIOPSY 07/02/2023 Left ROTATOR CUFF REPAIR 08/31/2018 - 08/30/2019 Right HERNIA REPAIR 08/31/2014 - 08/30/2015 CHOLECYSTECTOMY 08/31/2012 - 08/30/2013 TUBAL LIGATION 08/31/2009 - 08/30/2010 Medical History Medical History Date Comments Depression Type 2 diabetes mellitus (HCC) Hypertension Sleep apnea inconclusive sle ep study Family History Medical History Relation Name Comments Lung cancer Father Breast cancer Father's Sister Breast cancer Maternal cousin Breast cancer Mother Breast cancer Mother's Sister 1 Breast cancer Mother's Sister 2 Anesthesia problems Neg Hx Relation Name Status Comments Father Father's Sister Maternal cousin Mother Mother's Sister 1 Mother's Sister 2 Social History Tobacco Use Types Packs/Day Years [...] on file 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 Gender Identity Not on file Sexual Orientation Not on file Obstetrics History Last Filed Vital Signs Vital Sign Reading Time Taken Comments Blood Pressure 121/82 01/04/2025 12:30 PM CDT Pulse 89 01/04/2025 12:30 PM CDT Temperature 36.6 C (97.8 F) 09/14/2024 2:10 PM BEAN VINER Respiratory Rate 18 01/04/2025 12:3 0 PM [...] Description 01/04/2025 11:59 PM CDT Anesthesia Event [facility] [address] [place] [address] Mraisela Champion NP [address] [facility] [id number] [place], [place] [id number] 01/31/2025 Hospital Encounter [facility] [address] [place] [address] Liam Germain MD [address] [place] [address] Scheduled Procedures Name Priority Associated Diagnoses Date/Ti me XI REPAIR INCISIONAL HERNIA - LAPAROSCOPIC ROBOTIC ASSISTED Incarcerated incisional hernia XI ROBOTIC ABDOMINAL WALL RECONSTRUCTION Incarcerated incisional hernia Health Maintenance Due Date Last Done Comments Albumin Creatinine Ratio, Urine 1972 Cervical Cancer Screening 1972 Colon Cancer Screening-Colonoscopy 1972 Depression Screening 1972 Hepatitis C Screening 1972 Dilated Eye Exam 1972 Foot Exam 1972 Lipid Panel 1972 Hepatitis B Screening 01/12/1990 Regular Well Visit/Exam 18-64 01/12/1990 Pneumococcal vaccine <65 (1 of 2 - PCV) 01/12/1991 Breast Cancer Screening-Mammogram 04/16/2024 04/16/2023, 04/15/2023, 09/30/2021, Additional history exists Covid-19 Vaccine (2023-2 5 season) 2024 05/17/2022, 02/03/2022, 06/26/2021, Additional history exists Influenza Vaccine (Season Ended) 2025 05/13/2023, 05/17/2022, 06/14/2021, Additional history exists Hemoglobin A1C 07/07/2025 01/04/2025 eGFR 01/04/2026 01/04/2025 DTaP/Tdap/Td Vaccine (2 - Td or Tdap) 06/24/2030 06/24/2020 Zoster Vaccine Completed 09/15/2022, 07/02/2022 Medical Devices Implanted Type Area Safety And Security Officer Device Identifier Shelf Expiration Date Model / Serial / Lot [employer] Eviva 13cm Identifier Biopsy Site [id number] - [id number] Implanted:Qty: 1 on 07/02/2023 by Jordan Ansari MD at [facility] Left: Breast [employer] [id number] 10/21/2023 [facility] VA-13 / / [id number] Explanted Type Area Safety And Security Officer Device Identifier Shelf Expiration Date Model / Serial / Lot [employer] Registered Nurse Bone Marrow Transplant Breast Ultra High Profile Round Smooth Artoura Plus 535cc Silicone [id number] - [id number] - [id number] Implanted:Qty : 1 on 10/09/2023 by Roger Canada MD at [facility] Explanted:Qty : 1 on 11/24/2023 by Roger Canada MD at [facility] Breast Right: Breast [employer] [id number] 08/05/2027 [id number] / [id number] [employer] Registered Nurse Bone Marrow Transplant Breast Ultra High Profile Round Smooth Artoura Plus 535cc Silicone [id number] - [id number] - [id number] Implanted:Qty : 1 on 10/09/2023 by Roger Canada MD at [facility] Explanted:Qty : 1 on 11/24/2023 by Roger Canada MD at [facility] Breast Left: Breast [employer] [id number] 08/05/2027 [id number] / [id number] Procedures Procedure Name Priority Date/Time Associated Diagnosis [...] ABO Rh O Positive Baljinder, indirect Negative [facility] Blood 01/04/2025 1:13 PM CDT 01/04/2025 2:15 PM CDT [facility]ative [facility] - 01/04/2025 4:30 PM CDT Has the patient had Daratumumab or Isatuximab in the past 6 months?->Unknown Is this test being ordered in advance for a procedure?->Yes Expected date of procedure:->01/31/25 Has the patient been transfused in the past 3 months?->No Has the patient been in the past 3 months?->No Marisela Champion NP LAB BLOOD BANK TEST O RDERABLES Final Result [facility] [place] [address] * eGFR (01/04/2025 1:13 PM CDT) eGFR [...] of Race in Diagnosing Kidney Disease, JASN 202). The CKD-EPI equation should not be used for patients with unstable renal function and has not been validated in children and those over 70. Current interpretive data was last reviewed 2021. Blood 01/04/2025 1:13 PM CDT 01/04/2025 2:13 PM CDT Marisela Champion NP LAB BLOOD ORDERABLES Final Result [facility] Department [place] [address] * CBC without differential (01/04/2025 1:13 PM CDT) WBC 8.44 3.80 - 9.90 K/cumm Hgb 15.1 11.9 - 15.5 g/dL [facility] Hct 44.5 35.6 - 45.5 % [facility] Plt 303 150 - 400 K/cumm [facility] MPV 11.7 9.1 - 12.3 fL [facility] RBC 4.95 3.90 - 5.20 M/cumm [facility] MCV 89.9 81.3 - 96.4 fL [facility] MCH 30.5 27.1 - 33.3 pg [facility] MCHC 33.9 32.3 - 35.7 g/dL [facility] RDW CV 13.2 11.1 - 14.9 % [facility] RDW SD 43.1 35.7 - 48.1 fL [facility] NRBC abs 0.00 0.00 - 0.01 K/cumm [facility] Blood 01/04/2025 1:13 PM CDT 01/04/2025 2:14 PM CDT us Marisela Champion DIRECTOR CHILD LAB BLOOD ORDERABLES Final Result [facility] Department [place] [address] * Comprehensive metabolic panel (01/04/2025 1:13 PM CDT) Sodium 141 135 - 145 mmol/L Potassium, pl 3.9 3.3 - 4.9 mmol/L [facility] Comment:Hemolyzed; Potassium value may be falsely elevated by as much as 0.3-0.5 mmol/L. Suggest redraw and reanalysis. Chloride 105 97 - 110 mmol/L [facility] CO2 28 22 - 32 mmol/L [facility] Anion gap 8 2 - 15 mmol/L [facility] BUN 14 6 - 25 mg/dL [facility] Creatinine 0.67 0.60 - 1.10 mg/dL [facility] Glucose 128 70 - 199 mg/dL [facility] Comment: Interpretive Data Fasting glucose >/= 126 [...] classification and Diagnosis of Diabetes Diabetes Care 2021; 46: S19-S40. Current interpretive data was last revised 2022. Calcium 9.9 8.5 - 10.3 mg/dL [facility] Bilirubin, total 0.8 0.1 - 1.2 mg/dL [facility] Protein, pl 7.7 6.5 - 8.5 g/dL [facility] Albumin 4.4 3.5 - 5.0 g/dL [facility] Alk phos 77 40 - 130 Units/L [facility] ALT 20 7 - 45 Units/L [facility] AST 27 10 - 45 Units/L [facility] Comment:Hemolyzed; result ma y be falsely elevated Blood 01/04/2025 1:13 PM CDT 01/04/2025 2:13 PM CDT Marisela Champion NP LAB BLOOD ORDERABLES Final Result Performing Organization Address [facility] de Phone Number [facility] [place] [address] * POCT hemoglobin A1c (01/04/2025 1:03 PM CDT) Hgb A1C, POC 5.0 4.0 - 5.6 % Est Average Gluc POC 97 mg/dL [facility] Comment: The ADA recommends reporting an estimated Average Glucose (eAG) with all Hemoglobin A1c results using the equation derived from a study of 507 normal and diabetic adults. Minority populations were underrepresented and children were not included. (Diabetes Care 31:0691-2465, 2008). The eAG is not equivalent to a fasting glucose. Blood 01/04/2025 1:03 PM CDT 01/04/2025 1:03 PM CDT Liam Germain MD POINT OF CARE TEST ORDER KALEB Final Result Performing Organization Address [facility] [place] [address] from Last 3 Months Insurance [facility] ACCESS CHOICE ANTHEM ACCESS CHOICE Advance Directives For more information, please contact: [phone] * Full Code (Latest Code Status on File) Date Activated Date Inactivated Comments 10/09/2023 5:29 PM 10/10/2023 8:02 PM Care Teams Blunger Relationship Specialty Start Date End Date Michelle Pike MD [address] [facility] [place] [address] PCP - General Family Practice 05/21/23 Deana Lugo NP [address] [place] [address] Nurse Practitioner Obstetrics and Gynecology 05/21/23
== END 2025-01-16 10:02 | disposition home or self-care (01) ==
PROVIDERS: PCP Family Medicine; Visit Provider Nurse Practitioner Family
DX: Z12.2 Encounter for screening for malignant neoplasm of respiratory organs (principal); Z87.891 Personal history of nicotine dependence
CPT/HCPCS: 71271